=== PATIENT | female | born 1970 | race Caucasian/White ===

== ENCOUNTER → 2016-10-18 | Outpatient (CLI) | payer BC ==
[~2016-10-18] MED LIST: BARIUM SUSPENSION 2.1% (VANILLA SILQ) 450 ML PO ONE; DEXL60CA PO; LACT1CAP64 PO
--- NOTE | 2016-10-18 13:44 | Diagnostic Imaging Report ---
PROCEDURE: CT abdomen and pelvis without contrast. TECHNIQUE: Multiple contiguous axial images were obtained through the abdomen and pelvis without the use of intravenous contrast. INDICATION: Abdominal pain and bloating. FINDINGS: There are calcified granulomas seen in the right lung base just anterior to the IVC and in the medial right lower lobe with no consolidation. Please note that there is oral contrast only given on this exam which opacifies most of the colon and the stomach and some distal small bowel loops. The proximal small bowel loops in the upper abdomen are not well opacified. The lack of separation of the structures by intra-abdominal fat also somewhat limits the evaluation. There is significant fatty stranding seen in the omentum and the mesentery with thickening of the proximal small bowel loops and mild dilatation of jejunal loop as well as thickening of the gastric and duodenal mucosa. The findings are in favor of gastroenteritis. There is no free peritoneal air or fluid collection identified. Cholecystectomy clips are seen. The abdominal aorta is normal in caliber. No obvious para-aortic significantly enlarged lymph nodes seen. The spleen, the adrenals, and the pancreas are only grossly evaluated on this exam with no obvious abnormality. The kidneys have no hydronephrosis or stones. No urinary tract stones evident in the ureters. There is slight fullness in the area of the cervix. There is a suggestion of a dominant follicle/small cyst in the right adnexa measuring 2.8 cm in size. The osseous structures appear grossly unremarkable. IMPRESSION: 1. There is prominent fatty stranding in the omentum and mesentery with associated thickening of the proximal small bowel and stomach secondary to inflammatory or infectious gastroenteritis. Further evaluation with upper endoscopy is recommended. 2. There is slight fullness in the region of the cervix. Clinical evaluation is recommended. The findings were discussed with Dr. Espinosa at time of dictation. Dictated by: Dictated on workstation # [id number]
== END ==
LOC: RAD 11:14
PROVIDERS: ATTEND Family Medicine
DX: R10.32 Left lower quadrant pain (principal); K92.1 Melena
CPT/HCPCS: 74176

== ENCOUNTER 2016-10-25 11:00 | Outpatient (CLI) | payer BC ==
[~2016-10-25] VITALS: Ht 167.6 cm; Wt 61.2 kg
[2016-10-25] MEDS ORDERED: LACT1CAP64 PO (11:14)
[2016-10-25] MEDS ORDERED: DEXL60CA PO (11:14)
== END 2016-10-25 11:39 | disposition home or self-care (01) ==
LOC: PREOP 11:00
PROVIDERS: ATTEND Surgery
DX: Z01.818 Encounter for other preprocedural examination (principal); K21.9 Gastro-esophageal reflux disease without esophagitis; R19.7 Diarrhea, unspecified; Z80.0 Family history of malignant neoplasm of digestive organs

== ENCOUNTER 2016-10-28 06:48 | Day surgery (SDC) | payer BC ==
[~2016-10-28] VITALS: Ht 167.6 cm; Wt 61.2 kg
[~2016-10-28 06:48] MED LIST changes: -BARIUM SUSPENSION 2.1% (VANILLA SILQ) 450 ML PO ONE
[2016-10-28] MEDS ORDERED: NS IV 1000 ML 1,000 ML IV STA (06:51)
[2016-10-28] MEDS ORDERED: FLUMAZENIL (ROMAZICON) 0.1 MG/ML 5 ML VIAL INJ PRN (07:00)
[2016-10-28] MEDS ORDERED: NALOXONE 0.4 MG/ML 1 ML (NARCAN) VIAL IVP PRN (07:00)
[2016-10-28 07:19] VITALS: BP 94/63
[2016-10-28 07:24] VITALS: BP 94/63
[2016-10-28] MEDS ORDERED: HURRICAINE EXT TUBE (BENZOCAINE) XX ONE (07:30)
[2016-10-28] MEDS ORDERED: proPOfol 200 MG/20 ML (DIPRIVAN) VIAL IV ONE (07:32)
[2016-10-28] MEDS ORDERED: MIDAZOLAM 2 MG/2 ML (VERSED) VIAL ONE (07:32)
[2016-10-28] MEDS ORDERED: HURRICAINE EXT TUBE (BENZOCAINE) ONE (08:09)
[2016-10-28 08:40] VITALS: BP 93/56
--- NOTE | 2016-10-28 09:08 | OPERATIVE REPORT ---
DATE OF SERVICE: 10/28/2016 PROCEDURE: 1. Upper gastrointestinal endoscopy with antral biopsy. 2. Colonoscopy. 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 In addition, she reported a family history of colon cancer as well. Informed consent was obtained after reviewing the procedures in detail. DESCRIPTION OF PROCEDURE: I. Upper GI endoscopy/antral biopsy: She was placed in left lateral decubitus position and her vital signs were monitored. Conscious sedation was achieved using Propofol infusion by our anesthesiologist, Dr. Lind. The flexible gastroscope was then introduced down the esophagus, past the stomach into the proximal duodenum. FINDINGS: Esophagus normal. Stomach: 1. Distal gastritis of moderate severity. 2. A total of 2 shallow erosions at the antrum. Photodocumentation and biopsy for H. pylori were obtained. Duodenum: normal. She tolerated the procedure well and was turned around in preparation for colonoscopy. FINAL IMPRESSION: 1. Symptoms of reflux disease. 2. Distal gastritis and antral erosions. Helicobacter status pending. II. Colonoscopy: Digital rectal examination was unremarkable. The colonoscope was then introduced in the rectum and advanced all the way up to the cecum. The quality of bowel preparation was excellent. The scope was then withdrawn slowly and the mucosa examined in a systematic fashion. There was no abnormality. She tolerated the procedures well and was taken back to the nursing area in a stable condition. IMPRESSION: 1. New onset of diarrhea, currently improved. 2. Positive family history. 3. Normal colonoscopy. Recommend screening examination in 5 years. Job ID: [id number] DocumentID: [id number] Dictated Date: 10/28/2016 08:36:30 Associate Professor Of Medicine Date: 10/28/2016 09:07:30 Dictated By: DEANNE SEPULVEDA MD [facility]
[2016-10-28 09:09] VITALS: BP 85/52
--- NOTE | 2016-10-28 09:12 | Endoscopy Procedure Report ---
Endoscopy Report Date: Oct 28, 2016 Preoperative Diagnosis: GERD. Diarrhea. Family history of colon cancer Study Performed: Upper Endoscopy, Colonoscopy Procedure Instrument: Endoscope Endo Procedure/Findings Findings 1.: Normal, Gastritis Recommendations: Recommendations: 1.: Colonscopy in 5 years Copy Copies To 1: DONALD WINTER MD Copies To 2: GRISELDA HENDRIX XAVIER M MD Oct 28, 2016 9:11 am
[2016-10-28 09:20] VITALS: BP 85/52
== END 2016-10-28 09:20 | disposition home or self-care (01) ==
LOC: ENDO 06:48
PROVIDERS: ATTEND Surgery
DX: K29.60 Other gastritis without bleeding (principal); K25.7 Chronic gastric ulcer without hemorrhage or perforation; R19.7 Diarrhea, unspecified; Z80.0 Family history of malignant neoplasm of digestive organs
CPT/HCPCS: 84703; 88305; 88342

== ENCOUNTER → 2023-04-11 | Outpatient (CLI) | payer BC, OTHER, SELFPAY ==
--- NOTE | 2023-04-11 09:41 | Diagnostic Imaging Report ---
INDICATION: 53-year-old woman with vascular calcifications of the breast, screening for coronary artery calcifications. Limited mediastinal CT noncontrast for the purpose of coronary arterial detection and quantification performed. There are no detectable coronary artery atherosclerotic calcifications. The aorta is nonaneurysmal. No aortic calcifications. There are benign granulomatous lymph nodes in the subcarinal mediastinum, the right pulmonary hilum as well as a partially visualized right lower lobe lung parenchyma. No suspicious or noncalcified lung mass. No lymphadenopathy. No pleural or pericardial effusion visible. IMPRESSION: 1. No coronary or aortic atherosclerotic calcifications. 2. Incidental benign pulmonary parenchymal and angelique granulomatous residua. Dictated by: Dictated on workstation # [id number]
== END ==
LOC: RAD 08:22
PROVIDERS: ATTEND Family Medicine
DX: I99.8 Other disorder of circulatory system (principal)
CPT/HCPCS: 75571